=== PATIENT | female | born 1985 | race American Indian/Alaskan Native ===

== ENCOUNTER 2018-01-12 01:11 | Inpatient (IN) | payer OTHER ==
[2018-01-12 01:35] VITALS: BMI 27.4
[2018-01-12] MEDS ORDERED: Sodium Chloride 0.9% 1,000 ML IV STA ×2 (01:35→05:38)
--- NOTE | 2018-01-12 01:37 | ED PDOC ---
Arrival/HPI - General Time Seen by Provider: 01/12/18 01:13 Historian: Patient - History of Present Illness Narrative History of Present Illness (Text): 01/12/18 01:34 32 year old female, whose past medical history includes shellfish, who presents to the emergency department complaining of sharp abdominal pain tonight. Patient notes associated nausea. Patient states she ate past for dinner but was unaware there was shrimp in the dish. Patient denies any fevers, chills, vomiting, diarrhea, chest pain, SOB, back pain, neck pain, or any other complaints. Time/Duration: 4-6 hours Symptom Onset: Gradual Symptom Course: Unchanged Activities at Onset: Light Context: Home Past Medical History - Provider Review Nursing Documentation Reviewed: Yes Family/Social History - Physician Review Nursing Documentation Reviewed: Yes Family/Social History: Unknown Family HX Allergies/Home Meds Allergies/Adverse Reactions: Allergies shellfish derived Allergy (Verified 01/12/18 01:34) ANAPHYLAXIS Home Medications: Home Meds Medication Instructions Recorded Confirmed No Known Home Med 01/12/18 01/12/18 Review of Systems - Physician Review All systems were reviewed & negative as marked: Yes - Review of Systems Constitutional: Normal Eyes: Normal ENT: Normal Respiratory: Normal. absent: SOB, Cough Cardiovascular: Normal. absent: Chest Pain Gastrointestinal: Abdominal Pain, Nausea. absent: Diarrhea, Vomiting Genitourinary Female: Normal. absent: Dysuria, Frequency Musculoskeletal: Normal. absent: Back Pain, Neck Pain Skin: Normal. absent: Rash Neurological: Normal. absent: Headache, Dizziness Endocrine: Normal Hemo/Lymphatic: Normal Psychiatric: Normal Physical Exam Vital Signs Temp Pulse Resp BP Pulse Ox 01/12/18 01:34 98.5 F 70 18 138/50 L 100 - Systems Exam Head: Present: Atraumatic, Normocephalic Pupils: Present: PERRL Extroacular Muscles: Present: EOMI Conjunctiva: Present: Normal Mouth: Present: Moist Mucous Membranes Neck: Present: Normal Range of Motion Respiratory/Chest: Present: Clear to Auscultation, Good Air Exchange. No: Respiratory Distress, Accessory Muscle Use Cardiovascular: Present: Regular Rate and Rhythm, Normal S1, S2. No: Murmurs Abdomen: Present: Tenderness (epigastric/right upper abdomen), Normal Bowel Sounds. No: Distention, Peritoneal Signs, Rebound, Guarding, McBurney's Point Tender Back: Present: Normal Inspection Upper Extremity: Present: Normal Inspection. No: Cyanosis, Edema Lower Extremity: Present: Normal Inspection. No: Edema Neurological: Present: GCS=15, CN II-XII Intact, Speech Normal, Motor Func Grossly Intact, Normal Sensory Function Skin: Present: Warm, Dry, Normal Color. No: Rashes Psychiatric: Present: Alert, Oriented x 3, Normal Insight, Normal Concentration Medical Decision Making ED Course and Treatment: 01/12/18 01:38 Impression: 32 year old female presents to the emergency department complaining of sharp abdominal pain tonight. Plan: -- Labs -- Pepcid -- Toradol -- Zofran -- Sodium Chloride -- CT Abd/Pelvis -- UA Progress Notes: 01/12/18 05:31 CT Abdomen/Pelvis reviewed, shows: IMPRESSION: 1. Probable stones fill the gallbladder. Gallbladder is decompressed. If there is right upper quadrant pain, ultrasound evaluation may be helpful. 2. Mild fecal retention in the right and transverse colon consistent with constipation. 3. 4.3 x 2.9 cm right ovarian cyst or follicle. 01/12/18 05:[address] Leon, who is aware and agrees with plan. Accepts pt to his service. Requests Dr. Gregorio on consult. residential sales to evaluate pt. - Lab Interpretations Lab Results: 01/12/18 01:58 01/12/18 01:58 Lab Results 01/12/18 03:49: Urine Color Straw, Urine Appearance Clear, Urine pH 6.5, Ur Specific [place] <= 1.005, Urine Protein Negative, Urine Glucose (UA) Negative, Urine Ketones Negative, Urine Blood Negative, Urine Nitrate Negative, Urine Bilirubin Negative, Urine Urobilinogen 0.2, Ur Leukocyte Esterase Negative 01/12/18 01:58: WBC 14.1 H, RBC 4.17, Hgb 11.7 L, Hct 34.2 L, MCV 82.0, MCH 28.1 , MCHC 34.2, RDW 13.8, Plt Count 271, MPV 9.0 01/12/18 01:58: Sodium 143, Potassium 3.5 L, Chloride 103, Carbon Dioxide 28, Anion Gap 16, BUN 12, Creatinine 0.8, Est GFR ( Amer) > 60, Est GFR (Non- Af Amer) > 60, Random Glucose 93, Calcium 9.2, Total Bilirubin 0.6, AST 146 H, ALT 66 H, Alkaline Phosphatase 90, Total Protein 8.1, Albumin 4.3, Globulin 3.8 , Albumin/Globulin Ratio 1.1, Lipase 542 H - RAD Interpretation Radiology Orders: 01/12/18 03:03 ABD & PELVIS W/O PO OR IV CONT [CT] Stat 01/12/18 05:40 GALLBLADDER & PANCREAS [US] Stat - Medication Orders Current Medication Orders: Sodium Chloride (Sodium Chloride 0.9%) 1,000 mls @ 100 mls/hr IV .Q10H STA Stop: 01/12/18 15:37 Discontinued Medications Famotidine (Pepcid) 20 mg IVP STAT STA Stop: 01/12/18 01:36 Last Admin: 01/12/18 03:03 Dose: 20 mg IVP Administration Document 01/12/18 03:03 SS (Rec: 01/12/18 03:03 [id number] Charges for Administration # of IVP Administrations 1 Sodium Chloride (Sodium Chloride 0.9%) 1,000 mls @ 999 mls/hr IV .Q1H1M STA Stop: 01/12/18 02:35 Last Admin: 01/12/18 02:34 Dose: 999 mls/hr eMAR Start Stop Document 01/12/18 02:34 SS (Rec: 01/12/18 02:34 SS [id number]) Intravenous Solution Start Date 01/12/18 Start Time 02:34 Ketorolac Tromethamine (Toradol) 30 mg IVP ONCE ONE Stop: 01/12/18 01:36 Last Admin: 01/12/18 03:02 Dose: 30 mg MAR Pain Assessment Document 01/12/18 03:02 SS (Rec: 01/12/18 03:02 SS [id number]) Pain Reassessment Is this a pain reassessment? Yes IVP Administration Document 01/12/18 03:02 SS (Rec: 01/12/18 03:02 [id number] Charges for Administration # of IVP Administrations 1 Ondansetron HCl (Zofran Inj) 4 mg IVP ONCE ONE Stop: 01/12/18 01:36 Last Admin: 01/12/18 03:02 Dose: 4 mg IVP Administration Document 01/12/18 03:02 SS (Rec: 01/12/18 03:02 [id number]) Charges for Administration # of IVP Administrations 1 - Scribe Statement The provider has reviewed the documentation as recorded by the Angelaibsen Donnelly All medical record entries made by the Angelaibsen were at my direction and personally dictated by me. I have reviewed the chart and agree that the record accurately reflects my personal performance of the history, physical exam, medical decision making, and the department course for this patient. I have also personally directed, reviewed, and agree with the discharge instructions and disposition. Disposition/Present on Arrival - Present on Arrival Any Indicators Present on Arrival: No History of DVT/PE: No History of Uncontrolled Diabetes: No Urinary Catheter: No History of Decub. Ulcer: No History Surgical Site Infection Following: None - Disposition Have Diagnosis and Disposition been Completed?: Yes Diagnosis: Abdominal pain, Cholecystitis Disposition: HOSPITALIZED Disposition Time: 05:43 Condition: STABLE
[2018-01-12 02:17] LABS: HEMOGLOBIN 11.7 g/dL (12.0-16.0); MEAN CORPUSCULAR HEMOGLOBIN 28.1 pg (25.0-35.0); MEAN CORPUSCULAR HGB CONC 34.2 g/dl (31.0-37.0); RBC 4.17 10^6/uL (3.5-6.1); RED CELL DISTRIBUTION WIDTH 13.8 % (11.5-14.5); WHITE BLOOD COUNT 14.1 10^3/ul (4.5-11.0)
[2018-01-12 02:25] LABS: ALB/GLOB RATIO 1.1 (1.1-1.8); ALBUMIN 4.3 g/dL (3.0-4.8); ALT/SGPT 66 U/L (7-56); AST/SGOT 146 U/L (14-36); BLOOD UREA NITROGEN 12 mg/dL (7-21); CALCIUM 9.2 mg/dL (8.4-10.5); GFR AFRICAN-AMERICAN > 60; GFR NON-AFRICAN AMERICAN > 60; LIPASE 542 U/L (23-300)
[2018-01-12 04:04] LABS: PH,URINE 6.5 (4.7-8.0); URINE BILIRUBIN NEGATIVE (NEGATIVE); URINE BLOOD NEGATIVE (NEGATIVE); URINE GLUCOSE (UA) NEGATIVE (NEGATIVE); URINE LEUKOCYTE ESTERASE NEGATIVE Leu/uL (NEGATIVE); URINE PROTEIN NEGATIVE mg/dL (<30 mg/dL); URINE UROBILINOGEN 0.2 E.U./dL (<1 E.U./dL)
[2018-01-12 04:07] LABS: URINE APPEARANCE CLEAR (CLEAR); URINE COLOR STRAW (YELLOW)
[2018-01-12] MEDS ORDERED: Potassium Chloride 20 mEq ER Tab PO STA (05:46)
--- NOTE | 2018-01-12 06:19 | CP.PCM.HP ---
<Daljit Whatley - Last Filed: 01/12/18 07:02> History of Present Illness - History of Present Illness History of Present Illness: Daljit Whatley, PGY-[address] History and Physical for Dr. Leon CC: Abdominal Pain HPI: Ms. Sam is a 32 year old Female with no PMHx aside from recent wisdom teeth extraction for which she is on Amoxicillin who presents with abdominal pain that awoke the patient from sleep at 12:30 am. Patient reports a pain in the epigastric region and a scale of 10/10 at that time, and a lack of appetite. Patient also reports subjective chills and diaphoresis and nausea. Patient denies CP, palpitations, shortness of breath, vomiting, headache, dizziness, dysuria, changes in bowel habits. In ED, patient received Zofran, pepcid, pain medication and now patient reports pain as 0/10. PMHx: none per patient PSHx: wisdom tooth extraction All: Shellfish Social: denies IVDU, ETOH and tobacco Fam Hx: Dad has HTN Meds: multivitamin, currently on antibiotic course for wisdom teeth Present on Admission - Present on Admission Any Indicators Present on Admission: No Review of Systems - Review of Systems All systems: reviewed and no additional remarkable complaints except Review of Systems: 12 point ROS completed and negative except as described in HPI. Past Patient History - Past Social History Smoking Status: Never Smoked - CARDIAC Hx Cardiac Disorders: No - PULMONARY Hx Respiratory Disorders: No - NEUROLOGICAL Hx Neurological Disorder: No - HEENT Hx HEENT Problems: No - RENAL Hx Chronic Kidney Disease: No - ENDOCRINE/METABOLIC Hx Endocrine Disorders: No - HEMATOLOGICAL/ONCOLOGICAL Hx Blood Disorders: No - INTEGUMENTARY Hx Dermatological Problems: No - MUSCULOSKELETAL/RHEUMATOLOGICAL Hx Musculoskeletal Disorders: No - GASTROINTESTINAL Hx Gastrointestinal Disorders: No - GENITOURINARY/GYNECOLOGICAL Hx Genitourinary Disorders: No - PSYCHIATRIC Hx Psychophysiologic Disorder: No Hx Substance Use: No - SURGICAL HISTORY Hx Surgeries: No - ANESTHESIA Hx Anesthesia: No Meds Allergies/Adverse Reactions: Allergies Allergy/AdvReac Type Severity Reaction Status Date / Time shellfish derived Allergy ANAPHYLAXIS Verified 01/12/18 01:34 Physical Exam - Constitutional Appears: Well, Non-toxic, No Acute Distress - Head Exam Head Exam: ATRAUMATIC, NORMAL INSPECTION, NORMOCEPHALIC - Eye Exam Eye Exam: EOMI, Normal appearance Pupil Exam: PERRL - ENT Exam ENT Exam: Mucous Membranes Moist - Neck Exam Neck exam: Positive for: Normal Inspection. Negative for: Lymphadenopathy - Respiratory Exam Respiratory Exam: Clear to Auscultation Bilateral, NORMAL BREATHING PATTERN. absent: Rales, Rhonchi, Wheezes - Cardiovascular Exam Cardiovascular Exam: RRR, +S1, +S2 - GI/Abdominal Exam GI & Abdominal Exam: Normal Bowel Sounds, Soft. absent: Bruit, Distended, Guarding, Hypoactive Bowel Sounds, Mass, Organomegaly, Pulsatile Mass, Rebound, Rigid, Tenderness Additional comments: Negative Mejia and Rovsing sign. - Extremities Exam Extremities exam: Positive for: full ROM, normal inspection. Negative for: calf tenderness, joint swelling, pedal edema, tenderness - Back Exam Back exam: absent: CVA tenderness (L), CVA tenderness (R) - Neurological Exam Neurological exam: Alert, Normal Gait, Oriented x3 - Psychiatric Exam Psychiatric exam: Normal Affect, Normal Mood - Skin Skin Exam: Dry, Intact, Normal Color, Warm Results - Vital Signs Recent Vital Signs: Last Vital Signs Temp 98.5 F 01/12/18 01:34 Pulse 70 01/12/18 01:34 Resp 18 01/12/18 01:34 BP 138/50 L 01/12/18 01:34 Pulse Ox 100 01/12/18 01:34 - Labs Result Diagrams: 01/12/18 01:58 01/12/18 01:58 Assessment & Plan - Assessment and Plan (Free Text) Assessment: Ms. Sam is a 32 year old Female with no PMHx aside from recent wisdom teeth extraction for which she is on Amoxicillin who presents with abdominal pain that awoke the patient from sleep at 12:30 am. Plan: Cholelithiasis In ED, patient received Pepcid, Toradol, Zofran, CT abd report: probable stones fill gallbladder. Gallbladder decompressed. U/S may be helpful. Constipation. 4.3x2.9 R ovarian cyst or follicle WBC 14.1 , Hgb 11.7, Hct 34.2, hemodynamically stable AST/ALT 146/66 Abx Zosyn Lipase 542 UA negative B-hcg ordered to r/o NPO, LR @ 100cc/hr Zofran 4 mg q4 PRN f/u UDS f/u AM labs, including Mg and Phos f/u coag studies f/u blood culture f/u surgery (Dr. Gregorio) consult f/u GI (Dr. James) consult f/u ID (Dr. Rodriguez) consult f/u RUQ U/S and HIDA scan for ? biliary obstruction f/u transvaginal U/S Hypokalemia k 3.5 repleted f/u AM lab Recent [place] teeth removal currently on course of Amoxicillin patient did not know day of therapy, so f/u day with pharmacy GI/DVT ppx: Protonix 40 IVP q12 Heparin 5000 q8 Case reviewed and plan discussed with Dr. Leon. Daljit Whatley, PGY-1 <Eddie Leon U - Last Filed: 01/14/18 17:27> Results - Vital Signs Recent Vital Signs: Last Vital Signs Temp 97.6 F 01/14/18 08:34 Pulse 54 L 01/14/18 08:34 Resp 18 01/14/18 08:34 BP 125/79 01/14/18 08:34 Pulse Ox 100 01/14/18 08:34 - Labs Result Diagrams: 01/14/18 05:30 01/14/18 05:30 Labs: Laboratory Results - last 24 hr 01/14/18 01/14/18 05:30 05:30 WBC 8.8 D RBC 3.85 Hgb 10.4 L Hct 31.7 L MCV 82.3 MCH 27.0 MCHC 32.8 RDW 13.8 Plt Count 234 MPV 8.9 Gran % 54.6 Lymph % (Auto) 34.3 [place] % (Auto) 8.2 H Eos % (Auto) 2.7 Baso % (Auto) 0.2 Gran # 4.77 Lymph # (Auto) 3.0 [place] # (Auto) 0.7 H Eos # (Auto) 0.2 Baso # (Auto) 0.02 Sodium 141 Potassium 3.7 Chloride 107 Carbon Dioxide 26 Anion Gap 12 BUN 7 Creatinine 0.9 Est GFR ( Amer) > 60 Est GFR (Non-Af Amer) > 60 Random Glucose 100 Calcium 8.4 Phosphorus 3.3 Magnesium 1.7 Total Bilirubin 0.3 Direct Bilirubin 0.0 AST 93 H D ALT 222 H Alkaline Phosphatase 87 Total Protein 6.6 Albumin 3.3 Globulin 3.3 Albumin/Globulin Ratio 1.0 L Amylase 99 Lipase 267 Attending/Attestation - Attestation I have personally seen and examined this patient.: Yes I have fully participated in the care of the patient.: Yes I have reviewed all pertinent clinical information: Yes Notes (Text): Please see/read my dictated notes.
[2018-01-12] MEDS ORDERED: Lactated Ringer's 1,000 ML IV SCH (06:45)
[2018-01-12 07:12] LABS: INR 1.04; PARTIAL THROMBOPLASTIN TIME 27.4 Seconds (25.1-36.5)
[2018-01-12 07:21] LABS: BARBITURATES, UR NEGATIVE (NEGATIVE); BENZODIAZEPINES, UR NEGATIVE (NEGATIVE); OPIATES, UR NEGATIVE (NEGATIVE); PHENCYCLIDINE, UR NEGATIVE (NEGATIVE)
--- NOTE | 2018-01-12 07:48 | CP.PCM.CON ---
History of Present Illness - History of Present Illness History of Present Illness: General Surgery consult note for Dr. Gregorio. Pt is a 32 yo female with no significant PMH/PSH who presents to the ED complaining of worsening sharp epigastric 10/10 abdominal pain which woke her from sleep at about 12:30am on 01-12-18. Nothing makes the pain better or worse, the pain does not radiate. Pt reports that her abdominal pain has resolved at this time. Pt admits sweating and nausea during the episode, denies fevers, chills, vomiting, diarrhea. A 12 point ROS was obtained and negative unless otherwise stated. Surgery consulted to evaluate for abdominal pain. PMH: denies PSH: denies FH: Mother- from cervical cancer 50's, DM. Father- HTN, gallstones SH: never smoker, occasional alcohol, denies drugs Home Meds: denies Allergies: shrimp, "Throat closes" Review of Systems - Review of Systems Review of Systems: 12 point ROS obtained and added to HPI where appropriate. Past Patient History - Past Social History Smoking Status: Never Smoked - CARDIAC Hx Cardiac Disorders: No - PULMONARY Hx Respiratory Disorders: No - NEUROLOGICAL Hx Neurological Disorder: No - HEENT Hx HEENT Problems: No - RENAL Hx Chronic Kidney Disease: No - ENDOCRINE/METABOLIC Hx Endocrine Disorders: No - HEMATOLOGICAL/ONCOLOGICAL Hx Blood Disorders: No - INTEGUMENTARY Hx Dermatological Problems: No - MUSCULOSKELETAL/RHEUMATOLOGICAL Hx Musculoskeletal Disorders: No - GASTROINTESTINAL Hx Gastrointestinal Disorders: No - GENITOURINARY/GYNECOLOGICAL Hx Genitourinary Disorders: No - PSYCHIATRIC Hx Psychophysiologic Disorder: No Hx Substance Use: No - SURGICAL HISTORY Hx Surgeries: No - ANESTHESIA Hx Anesthesia: No Meds Allergies/Adverse Reactions: Allergies Allergy/AdvReac Type Severity Reaction Status Date / Time shellfish derived Allergy ANAPHYLAXIS Verified 01/12/18 01:34 - Medications Medications: Current Medications Acetaminophen (Tylenol 325mg Tab) 650 mg PO Q6 PRN PRN Reason: TEMP>=99.5F Acetaminophen (Tylenol 650 Mg Supp) 650 mg RC Q6H PRN PRN Reason: TEMP>=99.5F Acetaminophen (Tylenol 325mg Tab) 650 mg PO Q6 PRN PRN Reason: Headache Acetaminophen (Tylenol 650 Mg Supp) 650 mg RC Q6H PRN PRN Reason: Headache Docusate Sodium (Colace) 100 mg PO TID [facility] Heparin Sodium (Porcine) (Heparin) 5,000 units SC Q8 [facility] PRN Reason: Protocol Piperacillin Sod/Tazobactam Sod (Zosyn 3.375 In Ns 100ml) 100 mls @ 200 mls/hr IVPB Q6 JORGE PRN Reason: Protocol Stop: 01/12/18 18:29 Lactated Ringer's (Lactated Ringer's) 1,000 mls @ 100 mls/hr IV .Q10H [facility] Potassium Chloride (Potassium Chloride 20 Meq/100 Ml) 20 meq in 100 mls @ 50 mls/hr IVPB Q2H [facility] Stop: 01/12/18 10:44 Ondansetron HCl (Zofran Inj) 4 mg IVP Q4H PRN PRN Reason: Nausea/Vomiting Pantoprazole Sodium (Protonix Inj) 40 mg IVP Q12 [facility] Polyethylene Glycol (Miralax) 17 gm PO BID [facility] Physical Exam - Constitutional Appears: No Acute Distress - Head Exam Head Exam: ATRAUMATIC, NORMAL INSPECTION, NORMOCEPHALIC - Eye Exam Eye Exam: EOMI, Normal appearance. absent: Conjunctival injection - ENT Exam ENT Exam: Mucous Membranes Moist - Neck Exam Neck exam: Positive for: Full Rom - Respiratory Exam Respiratory Exam: Clear to Auscultation Bilateral, NORMAL BREATHING PATTERN. absent: Accessory Muscle Use, Chest Wall Tenderness, Wheezes, Respiratory Distress, Stridor - Cardiovascular Exam Cardiovascular Exam: REGULAR RHYTHM, RRR, +S1, +S2. absent: Bradycardia, Tachycardia, Diastolic murmur, Irregular Rhythm, JVD, Systolic Murmur - GI/Abdominal Exam GI & Abdominal Exam: Normal Bowel Sounds, Soft. absent: Distended, Firm, Guarding, Rebound, Rigid, Tenderness - Extremities Exam Extremities exam: Positive for: full ROM, normal inspection, pedal pulses present. Negative for: calf tenderness, pedal edema, tenderness - Back Exam Back exam: FULL ROM, NORMAL INSPECTION. absent: CVA tenderness (L), CVA tenderness (R), muscle spasm, tenderness - Neurological Exam Neurological exam: Alert, Oriented x3 - Psychiatric Exam Psychiatric exam: Normal Affect, Normal Mood - Skin Skin Exam: Dry, Normal Color, Warm Results - Vital Signs Recent Vital Signs: Last Vital Signs Temp 98.5 F 01/12/18 01:34 Pulse 84 01/12/18 06:15 Resp 20 01/12/18 06:15 BP 124/70 01/12/18 06:15 Pulse Ox 99 01/12/18 07:18 - Labs Result Diagrams: 01/12/18 01:58 01/12/18 01:58 Labs: Laboratory Results - last 24 hr 01/12/18 01/12/18 01/12/18 06:24 06:51 06:51 PT 12.0 INR 1.04 APTT 27.4 Beta HCG, Quant < 2.39 Urine Opiates Screen Negative Urine Methadone Screen Negative Ur Barbiturates Screen Negative Ur Phencyclidine Scrn Negative Ur Amphetamines Screen Negative U Benzodiazepines Scrn Negative U Oth Cocaine Metabols Negative U Cannabinoids Screen Negative Assessment & Plan - Assessment and Plan (Free Text) Assessment: 32 yo female with abdominal pain. Plan: -RUQ US shows multiple small echogenic shadowing gallstones in gallbladder, w/o significant wall thickening or pericholecystic fluid, CBD 5mm. -f/u CT abdomen/ pelvis -F/u HIDA scan -continue to monitor WBC 14.1, LFT, ALT/AST elevated, Lipase 542 -continue IV antibiotics, per ID recs -GI consulted -discussed with Dr. Jg Cabrera PGY-1
--- NOTE | 2018-01-12 07:54 | US ---
EXAM: US Abdomen Limited, Right Upper Quadrant CLINICAL HISTORY: 32 years old, female; Pain; Abdominal pain; Generalized TECHNIQUE: Real-time ultrasound of the right upper quadrant with image documentation. COMPARISON: CT - ABD PELVIS W/O PO OR IV CONT 2018-01-12 04:03 FINDINGS: Liver: There is a diffuse increase in hepatic parenchymal echogenicity, consistent with fatty infiltration.There are no focal lesions present.There is normal hepatopedal flow noted in the portal vein. Gallbladder: There are multiple small echogenic shadowing gallstones in the gallbladder without significant wall thickening or pericholecystic fluid.No sonographic Mejia sign is seen. Common bile duct: There is no evidence of biliary ductal dilation.5 mm. No stones. Pancreas: The visualized pancreas is normal in appearance without evidence for discrete masses or pancreatitis.The pancreas tail is obscured by overlying bowel gas limiting evaluation. Right kidney: The right kidney is normal in size without evidence for calculus or hydronephrosis. Aorta: The abdominal aorta is normal in caliber without evidence for dissection or aneurysm. Inferior vena cava: The inferior vena cava is normal in caliber. IMPRESSION: There are multiple small echogenic shadowing gallstones in the gallbladder without significant wall thickening or pericholecystic fluid.No sonographic Mejia sign is seen.
--- NOTE | 2018-01-12 07:57 | US ---
EXAM: US Pelvis Complete, Transabdominal US Pelvis, Transvaginal CLINICAL HISTORY: 32 years old, female; Pain; Pelvic pain; Additional info: Ovarian cyst TECHNIQUE: Real-time transabdominal and transvaginal pelvic ultrasound (complete) with image documentation. Transvaginal imaging was used for better evaluation of the endometrium and adnexa. COMPARISON: CT - ABD PELVIS W/O PO OR IV CONT 2018-01-12 04:03 FINDINGS: Uterus/cervix: The uterus is anteverted, normal in size and echotexture. 8.1 x 3.4 x 5.4 cm. No discrete fibroid or focal mass is seen. The endometrium measures 1 cm in thickness. Right ovary: The right ovary is normal in size and echotexture. 5.6 x 3.7 x 5.7 cm. Normal arterial flow is seen in the right ovary without evidence for torsion. 5.0 x 4.3 x 2.7 cm anechoic simple follicular cyst is again noted in the right ovary. Left ovary: The left ovary is normal in size and echotexture. 3.2 x 1.8 x 3.6 cm. Normal arterial flow is seen in the left ovary without evidence for torsion.Few subcentimeter simple follicular cysts are seen. Free fluid: No free fluid. Bladder: Unremarkable as visualized. Wall is normal thickness for degree of distention. IMPRESSION: 5.0 x 4.3 x 2.7 cm anechoic simple follicular cyst is again noted in the right ovary. No discrete fibroid, solid adnexal masses or free fluid is seen.
--- NOTE | 2018-01-12 08:52 | CT ---
Date of service: 01/12/2018 PROCEDURE: CT Abdomen and Pelvis without intravenous contrast HISTORY: abdominal pain COMPARISON: None. TECHNIQUE: Without contrast.. Contrast dose: 0 Radiation dose: Total exam DLP = 448.64 mGy-cm. This CT exam was performed using one or more of the following dose reduction techniques: Automated exposure control, adjustment of the mA and/or kV according to patient size, and/or use of iterative reconstruction technique. FINDINGS: LOWER THORAX: Unremarkable. LIVER: Unremarkable. No gross lesion or ductal dilatation. GALLBLADDER AND BILE DUCTS: High attenuation material within the gallbladder lumen may reflect milk of calcium bile. Alternatively, this could represent vicarious excretion of intravenously administered contrast material from recent outside examination. No definite calculi appreciated. PANCREAS: Unremarkable. No gross lesion or ductal dilatation. SPLEEN: Unremarkable. ADRENALS: Unremarkable. No mass. KIDNEYS AND URETERS: Unremarkable. No hydronephrosis. No solid mass. VASCULATURE: Unremarkable. No aortic aneurysm. BOWEL: Unremarkable. No obstruction. No gross mural thickening. APPENDIX: Unremarkable. Normal appendix. PERITONEUM: Unremarkable. No free fluid. No free air. LYMPH NODES: Unremarkable. No enlarged lymph nodes. BLADDER: Unremarkable. REPRODUCTIVE: Right adnexal cyst, 2.4 x 3.8 cm. Correlate with transvaginal pelvic ultrasound. Unremarkable uterus. BONES: No acute fracture. OTHER FINDINGS: None. IMPRESSION: 3.8 cm right adnexal cyst. Correlate with transvaginal pelvic ultrasound examination. High attenuation material within gallbladder lumen common nonspecific. Possible milk of calcium bile or vicarious excretion of contrast material. No additional abnormality. The preliminary findings for this examination were reported by [employer] at 5:26 a.m. on 01/12/2018. There is concurrence of this report with the preliminary findings.
[2018-01-12] MEDS: POLYETHYLENE GLYCOL 3350 17 GM/Dose PACKET PO SCH ×2 (11:26→18:01)
--- NOTE | 2018-01-12 11:42 | CP.PCM.CON ---
<Tahmina Young - Last Filed: 01/12/18 13:31> History of Present Illness - History of Present Illness History of Present Illness: 32 yo female with no significant PMH presented to ED with abdominal pain that awoke the patient from sleep at 12:30 am. Patient states the pain was located in the epigastric region and a scale of 10/10 at that time. Patient also reports subjective chills and diaphoresis and nausea at the time. This morning patient states that the pain has resolved as well as jian nausea and vomiting. He denies preivous episode with similar pain. Patient states that she has pasta for dinner last night. She also reprots shellfish allergy without any known expose. She denies any sick contact. Patients states that last month she travelled to [place]. She also reports wisdom teeth extraction for which she is on Amoxicillin last week. Patient denies chest pain, palpitations, shortness of breath, vomiting, headache, dizziness, dysuria, changes in bowel habits. PMH: none per patient PSH: wisdom tooth extraction Allergy: Shellfish Social history: denies smoking, alcohol use, illicit drug use Family History: mother past away from [facility], father has HTN and possible gallstones Review of Systems - Review of Systems All systems: reviewed and no additional remarkable complaints except Past Patient History - Past Social History Smoking Status: Never Smoked - CARDIAC Hx Cardiac Disorders: No - PULMONARY Hx Respiratory Disorders: No - NEUROLOGICAL Hx Neurological Disorder: No - HEENT Hx HEENT Problems: No - RENAL Hx Chronic Kidney Disease: No - ENDOCRINE/METABOLIC Hx Endocrine Disorders: No - HEMATOLOGICAL/ONCOLOGICAL Hx Blood Disorders: No - INTEGUMENTARY Hx Dermatological Problems: No - MUSCULOSKELETAL/RHEUMATOLOGICAL Hx Musculoskeletal Disorders: No - GASTROINTESTINAL Hx Gastrointestinal Disorders: No - GENITOURINARY/GYNECOLOGICAL Hx Genitourinary Disorders: No - PSYCHIATRIC Hx Psychophysiologic Disorder: No Hx Substance Use: No - SURGICAL HISTORY Hx Surgeries: No - ANESTHESIA Hx Anesthesia: No Meds Allergies/Adverse Reactions: Allergies Allergy/AdvReac Type Severity Reaction Status Date / Time shellfish derived Allergy ANAPHYLAXIS Verified 01/12/18 01:34 - Medications Medications: Current Medications Acetaminophen (Tylenol 325mg Tab) 650 mg PO Q6 PRN PRN Reason: TEMP>=99.5F Acetaminophen (Tylenol 650 Mg Supp) 650 mg RC Q6H PRN PRN Reason: TEMP>=99.5F Acetaminophen (Tylenol 325mg Tab) 650 mg PO Q6 PRN PRN Reason: Headache Acetaminophen (Tylenol 650 Mg Supp) 650 mg RC Q6H PRN PRN Reason: Headache Docusate Sodium (Colace) 100 mg PO TID [facility] Heparin Sodium (Porcine) (Heparin) 5,000 units SC Q8 [facility] PRN Reason: Protocol Last Admin: 01/12/18 11:28 Dose: Not Given Piperacillin Sod/Tazobactam Sod (Zosyn 3.375 In Ns 100ml) 100 mls @ 200 mls/hr IVPB Q6 [facility] PRN Reason: Protocol Stop: 01/17/18 12:01 Lactated Ringer's (Lactated Ringer's) 1,000 mls @ 100 mls/hr IV .Q10H [facility] Ondansetron HCl (Zofran Inj) 4 mg IVP Q4H PRN PRN Reason: Nausea/Vomiting Pantoprazole Sodium (Protonix Inj) 40 mg IVP Q12 [facility] Last Admin: 01/12/18 11:26 Dose: 40 mg Polyethylene Glycol (Miralax) 17 gm PO BID [facility] Last Admin: 01/12/18 11:26 Dose: 17 gm Physical Exam - Constitutional Appears: No Acute Distress - Head Exam Head Exam: ATRAUMATIC, NORMAL INSPECTION, NORMOCEPHALIC - Eye Exam Eye Exam: Normal appearance - ENT Exam ENT Exam: Mucous Membranes Moist - Respiratory Exam Respiratory Exam: Clear to Auscultation Bilateral, NORMAL BREATHING PATTERN. absent: Decreased Breath Sounds, Rales, Rhonchi, Wheezes, Respiratory Distress - Cardiovascular Exam Cardiovascular Exam: REGULAR RHYTHM, +S1, +S2. absent: Bradycardia, Tachycardia , Diastolic murmur, Systolic Murmur - GI/Abdominal Exam GI & Abdominal Exam: Normal Bowel Sounds, Soft. absent: Diminished Bowel Sounds , Distended, Firm, Guarding, Tenderness - Extremities Exam Extremities exam: Positive for: normal inspection - Back Exam Back exam: NORMAL INSPECTION. absent: CVA tenderness (L), CVA tenderness (R) - Neurological Exam Neurological exam: Alert, Oriented x3 Results - Vital Signs Recent Vital Signs: Last Vital Signs Temp 98.2 F 01/12/18 08:11 Pulse 56 L 01/12/18 08:11 Resp 20 01/12/18 08:11 BP 113/73 01/12/18 08:11 Pulse Ox 99 01/12/18 07:18 - Labs Result Diagrams: 01/12/18 01:58 01/12/18 01:58 Labs: Laboratory Results - last 24 hr 01/12/18 01/12/18 01/12/18 06:24 06:51 06:51 PT 12.0 INR 1.04 APTT 27.4 Beta HCG, Quant < 2.39 Urine Opiates Screen Negative Urine Methadone Screen Negative Ur Barbiturates Screen Negative Ur Phencyclidine Scrn Negative Ur Amphetamines Screen Negative U Benzodiazepines Scrn Negative U Oth Cocaine Metabols Negative U Cannabinoids Screen Negative Assessment & Plan - Assessment and Plan (Free Text) Assessment: 32 yo female with no significant PMH presented to ED with abdominal pain. CT abd showed probable stones fill gallbladder, mild Constipation and right ovarian cyst or follicle. In ED patient was found to be afebrile with leukocytosis. US showed gall bladder stones with out gall bladder wall thickening. Need to rule out cholecystitis. Will continue zosyn, if HIDA scan is negative will discontinue antibiotics. case reviewed and discussed with attending, Dr. Johnson <Cameron Johnson - Last Filed: 01/12/18 17:21> Meds - Medications Medications: Current Medications Acetaminophen (Tylenol 325mg Tab) 650 mg PO Q6 PRN PRN Reason: TEMP>=99.5F Acetaminophen (Tylenol 650 Mg Supp) 650 mg RC Q6H PRN PRN Reason: TEMP>=99.5F Acetaminophen (Tylenol 325mg Tab) 650 mg PO Q6 PRN PRN Reason: Headache Acetaminophen (Tylenol 650 Mg Supp) 650 mg RC Q6H PRN PRN Reason: Headache Docusate Sodium (Colace) 100 mg PO TID [facility] Last Admin: 01/12/18 14:15 Dose: 100 mg Heparin Sodium (Porcine) (Heparin) 5,000 units SC Q8 [facility] PRN Reason: Protocol Last Admin: 01/12/18 13:46 Dose: Not Given Piperacillin Sod/Tazobactam Sod (Zosyn 3.375 In Ns 100ml) 100 mls @ 200 mls/hr IVPB Q6 [facility] PRN Reason: Protocol Stop: 01/17/18 12:01 Last Admin: 01/12/18 13:00 Dose: 200 mls/hr Lactated Ringer's (Lactated Ringer's) 1,000 mls @ 100 mls/hr IV .Q10H [facility] Dextrose/Sodium Chloride (Dextrose 5%/0.45% Ns 1000 Ml) 1,000 mls @ 110 mls/hr IV .Q9H6M [facility] Last Admin: 01/12/18 12:59 Dose: 110 mls/hr Ondansetron HCl (Zofran Inj) 4 mg IVP Q4H PRN PRN Reason: Nausea/Vomiting Pantoprazole Sodium (Protonix Inj) 40 mg IVP Q12 [facility] Last Admin: 01/12/18 11:26 Dose: 40 mg Polyethylene Glycol (Miralax) 17 gm PO BID [facility] Last Admin: 01/12/18 11:26 Dose: 17 gm Results - Vital Signs Recent Vital Signs: Last Vital Signs Temp 98.4 F 01/12/18 16:40 Pulse 47 L 01/12/18 16:40 Resp 19 01/12/18 16:40 BP 110/68 01/12/18 16:40 Pulse Ox 100 01/12/18 16:40 - Labs Result Diagrams: 01/12/18 01:58 01/12/18 01:58 Labs: Laboratory Results - last 24 hr 01/12/18 01/12/18 01/12/18 06:24 06:51 06:51 PT 12.0 INR 1.04 APTT 27.4 Beta HCG, Quant < 2.39 Urine Opiates Screen Negative Urine Methadone Screen Negative Ur Barbiturates Screen Negative Ur Phencyclidine Scrn Negative Ur Amphetamines Screen Negative U Benzodiazepines Scrn Negative U Oth Cocaine Metabols Negative U Cannabinoids Screen Negative Assessment & Plan - Assessment and Plan (Free Text) Assessment: Infectious Diseases Attending Physician Addendum Patient seen and examined, discussed with medical equipment technician. I have reviewed the pertinent clinical information for the patient, including history of present illness, medical, personal and social histories, lab results and imaging findings. I agree with the above findings, assessment and plan. In addition, we have started Zosyn for this patient with cholelithiasis R/O acute cholecystitis in this patient with mild acute pancreatitis. Follow up HIDA scan.
--- NOTE | 2018-01-12 12:16 | NM ---
Date of service: 01/12/2018 PROCEDURE: Nuclear Medicine Hepatobiliary Scan HISTORY: ? cystic duct obstruction COMPARISON: January 12, 2018. Abdominal ultrasound TECHNIQUE: 6.5 mCi of technetium 99m Mebrofenin was administered intravenously. Planar images of the abdomen were obtained at 5 min intervals to 60 mins. Delayed images were also obtained. FINDINGS: LIVER: Timely and homogenous uptake. COMMON BILE DUCT: identified at 15 mins. GALLBLADDER: identified at 30 mins. SMALL BOWEL: Identified at 30 mins. IMPRESSION: Normal Hepatobiliary Scan. The cystic duct is patent.
[2018-01-12] MEDS: Dextrose 5%/0.45% NS 1,000 ML IV SCH ×2 (12:59→21:35)
[2018-01-12] MEDS: Piperacillin/Tazobact 3.375 gm 100 ML IVPB SCH ×2 (13:00→18:01)
--- NOTE | 2018-01-12 14:33 | HP ---
Copied To: Eddie Leon MD Attending MD: Eddie Leon MD HISTORY OF PRESENT ILLNESS: The patient is a 32-year-old female presented with less than 12 hours complaining of upper abdominal, epigastric, right upper quadrant pain associated with nausea. Denies any vomiting, diarrhea. Denies hemoptysis, hematemesis, melena. The patient reported above symptoms to the triage according to the ER physician evaluation and according to the patient. The patient has complained of sharp upper abdominal pain tonight associated with nausea. The patient ate fast at dinner. The patient was unaware that there was shrimp in the meal. Symptoms were less than 12 hours. REVIEW OF SYSTEMS: Thirteen-system review was done, pertinent positive and negative dictated above. CODE STATUS: Full code. LIVING WILL ADVANCE DIRECTIVE: None. HEIGHT: 5 feet 3. WEIGHT: 155. BMI: 27. ALLERGIES: SHELLFISH DERIVATIVE. HOME MEDICATIONS: None. MEDICAL, SURGICAL PSYCHIATRIC HISTORY: Negative. SOCIAL HISTORY: Positive for occasional alcohol use. Denies smoking. Denies drug use. Denies communicable transmissible disease. FAMILY HISTORY: Father has history of gallstone. Mother has history of cervical cancer. OCCUPATIONAL HISTORY: The patient works for the [employer]. Past surgical history is only significant for wisdom tooth extraction. PHYSICAL EXAMINATION: VITAL SIGNS: T-max 98.5; heart rate 70, 84; blood pressure 138/50, 124/70, 113/73; respirations 18-20; O2 sat 99-100%. GENERAL: The patient is seen lying in bed in [facility], bed 2. The patient is alert, awake, oriented x3. The patient is lying in the bed comfortably. Does not appear to be in any distress. HEENT: Head examination normocephalic, atraumatic. HEENT examination shows pinkish pale conjunctivae. Dry oral mucosa. No neck rigidity. CHEST: Symmetrical. LUNGS: Shows no rales, crackles or wheezing. CARDIOVASCULAR: S1, S2, regular rhythm. No audible murmur, gallop or rub. No rales, crackles or wheezing. ABDOMEN: Soft. Positive bowel sound. Positive epigastric right upper quadrant tenderness. Mild periumbilical tenderness. No rebound. No guarding. No rigidity. No costovertebral angle tenderness. GENITALIA: Female. RECTAL: Deferred. EXTREMITY: Shows no pitting edema, no calf tenderness, no Homans' sign. NEUROLOGICAL: The patient is alert, awake, oriented x3. Cranial nerves II through XII grossly intact. Gait examination is independent. MUSCULOSKELETAL: Shows a body mass index of 27. VASCULAR: Palpable pulses. PSYCHIATRIC: Negative. DIAGNOSTICS: WBC 14.1, hemoglobin and hematocrit 14.7 and 34.2. PT/PTT 12 and 27.4. Abnormal chemistry, potassium 3.5, AST 146, ALT 66, lipase 542. Beta hCG negative. Urinalysis negative. Urine drug screen negative. The patient had a CT of the abdomen, gallbladder ultrasound, transvaginal ultrasound, CAT scan of the abdomen and pelvis. Gallbladder ultrasound and transvaginal ultrasound were reviewed, which were done in the emergency room. TREATMENT IN THE EMERGENCY ROOM: The patient was seen and evaluated in the emergency room by the ER physician. The patient was given IV fluid. The patient was given Pepcid. The patient was given Toradol. The patient was given Zofran 4 mg. The patient was admitted. IMPRESSION AND PLAN: 1. Most likely possible acute cholecystitis with symptomatic cholelithiasis. 2. Upper abdominal pain. 3. Questionable mild gastritis. 4. Questionable pancreatitis with elevated lipase. 5. Right adnexal cyst, 2.4 x 3.8 cm. 6. Questionable milk calcium bile versus vicarious gallbladder material excretion. 7. Anteverted uterus. 8. Right ovarian simple follicular cyst, 5 x 4.3 x 2.7 cm. 9. Left ovarian simple follicular cyst, subcentimeter. 10. Hepatic fatty infiltration and hepatic steatosis. 11. Multiple cholelithiasis and multiple gallstones. 12. Leukocytosis. 13. Mild normocytic anemia. 14. Hypokalemia. 15. Transaminitis. 16. Questionable gallstone pancreatitis. Plan at this time, the patient has been admitted to [facility]. The patient has been kept n.p.o. The patient's repeat serial labs ordered. Blood cultures ordered. Current consultation: Gastroenterology, Infectious Disease, Surgery. CURRENT MEDICATIONS: Colace 100 mg three times a day, heparin 5000 subcu every 8 for DVT prophylaxis, Ringer's lactate 100 mL an hour, MiraLax 17 g twice a day, potassium riders orders x2, Protonix 40 IV every 12. The patient is on Tylenol p.o. and suppository every 6 p.r.n., Zofran 4 IV every 4 p.r.n. The patient is on Zosyn 3.375 g IV every 6. HIDA scan ordered. Incentive spirometry. The patient is n.p.o. except meds. The patient has been ordered out of bed to chair, NANCY sampson, MELANIEs. The patient's initial CAT scan read by the [facility]. Initial CAT scan shows fecal retention in the right and the transverse colon consistent with constipation also. An ovarian cyst. At present, the patient is awaiting surgical, infectious disease and gastroenterology evaluation and recommendation. The patient has been updated about her condition, diagnoses, treatment plan, management plan at length and all questions concerned answered, which she acknowledged and understand. Dictated and electronically signed, not read. Eddie Leon MD
--- NOTE | 2018-01-12 16:00 | CON ---
Copied To: Yan James MD Attending MD: Yan James MD DATE: 01/12/2018 CONSULTATION IN GASTROENTEROLOGY REQUESTING PHYSICIAN: Eddie Leon MD. REASON FOR CONSULT: I have been asked to see this 32-year-old female, who was awakened early this morning with severe epigastric pain. This was associated with nausea and chills. There is no report of vomiting. Radiographic imaging with ultrasound and CAT scan reveals gallstones. There is no evidence of gallbladder wall thickening or pericholecystic fluid. Hepatobiliary scan was negative for cystic duct obstruction. The patient states that her abdominal pain has essentially resolved. She denies any previous attacks of similar pain. PAST MEDICAL HISTORY: Unremarkable. PAST SURGICAL HISTORY: Notable for wisdom tooth extraction. SOCIAL HISTORY: She denies cigarette smoking or alcohol use. FAMILY HISTORY: Notable for mother dying from cervical cancer. Father with hypertension. MEDICATIONS AT HOME: Antibiotic eye drops. PHYSICAL EXAMINATION: GENERAL: Well-developed female, lying in bed, in no acute distress. VITAL SIGNS: Reveal temperature of 98.2, blood pressure 113/73, heart rate of 56. HEENT: Reveals sclerae to be white. Conjunctivae pink. NECK: Supple. CHEST: Lungs are clear. HEART: Reveals a regular rate and rhythm. ABDOMEN: Soft, nontender. No mass. EXTREMITIES: Show no edema. LABORATORY DATA: Reveal white blood cell count 14.1, hemoglobin 11.7. Chemistries reveal AST 146, ALT 66, lipase of 542, total bilirubin 0.6. IMPRESSION: A 32-year-old female awakened in the middle of the night with severe epigastric pain associated with nausea, chills with radiographic imaging studies showing gallstones. The common bile duct is not dilated. There is no pancreatic inflammation. There is some increased echogenicity of the liver consistent with fatty liver. This may explain the elevated liver enzymes. Hepatobiliary scan is negative. Again, I believe that the patient's abdominal pain is secondary to biliary colic. I do not believe that the patient has acute pancreatitis. RECOMMENDATIONS: 1. Surgical evaluation for cholecystectomy. 2. Clear liquid diet. 3. Advance to a low-fat diet as tolerated. Yan James MD
[2018-01-12 16:41] VITALS: O2SAT 100
[2018-01-13] MEDS: Piperacillin/Tazobact 3.375 gm 100 ML IVPB SCH ×4 (00:57→18:44)
[2018-01-13 06:19] LABS: BASO # 0.02 K/mm3 (0.0-2.0); BASO % 0.3 % (0.0-3.0); EOS # 0.2 (0.0-0.7); EOS % 2.5 % (1.5-5.0); GRAN # 3.41 (1.4-6.5); GRAN % 53.8 % (50.0-68.0); HEMOGLOBIN 10.7 g/dL (12.0-16.0); LYMPH # 2.4 (1.2-3.4); LYMPH % 37.3 % (22.0-35.0); MEAN CELL VOLUME 82.9 fl (80.0-105.0); MEAN CORPUSCULAR HEMOGLOBIN 27.7 pg (25.0-35.0); MEAN CORPUSCULAR HGB CONC 33.4 g/dl (31.0-37.0); MEAN PLATELET VOLUME 8.8 fl (7.0-11.0); MONO # 0.4 (0.1-0.6); MONO % 6.1 % (1.0-6.0); RBC 3.86 10^6/uL (3.5-6.1); WHITE BLOOD COUNT 6.4 10^3/ul (4.5-11.0)
[2018-01-13 06:34] LABS: ALBUMIN 3.4 g/dL (3.0-4.8); ALT/SGPT 351 U/L (7-56); AMYLASE 93 U/L (35-125); AST/SGOT 239 U/L (14-36); BILIRUBIN,DIRECT 0.1 mg/dL (0.0-0.4); BLOOD UREA NITROGEN 6 mg/dL (7-21); CALCIUM 8.5 mg/dL (8.4-10.5); GFR AFRICAN-AMERICAN > 60; GFR NON-AFRICAN AMERICAN > 60; LIPASE 115 U/L (23-300)
--- NOTE | 2018-01-13 10:15 | PN ---
Copied To: Kobe Rodriguez MD Attending MD: Kobe Rodriguez MD DATE: 01/13/2018 SUBJECTIVE: The patient is seen in bed, in no acute distress, nontoxic. OBJECTIVE: VITAL SIGNS: On exam, temperature is 98, blood pressure is 110/60, respiratory rate 20. HEENT: Examination is unremarkable. NECK: Supple. LUNGS: Have decreased breath sounds. HEART: Normal S1, S2. ABDOMEN: Soft, nontender. DATA: Laboratory examination reveals a white count of 6.4, hemoglobin of 10. Chemistries are noted, the LFT elevations and a lipase of 542. Urinalysis is noted. Toxicology is negative. Microbiology reveals the blood cultures have no growth.. Review of order reveals the patient to be on piperacillin and tazobactam and Dr. James's consult is reviewed. HIDA scan is reviewed. Gallbladder ultrasound is reviewed. CAT scan of the abdomen and pelvis is reviewed. ASSESSMENT AND PLAN: This is a 32-year-old female who was admitted with what appears to be acute cholecystitis and the patient admitted with abdominal pain. No fevers, no tachycardia. No dyspnea. She did have leukocytosis, currently on Zosyn. Awaiting for further input from Surgery and Gastroenterology. Kobe Rodriguez MD
[2018-01-13] MEDS: POLYETHYLENE GLYCOL 3350 17 GM/Dose PACKET PO SCH ×2 (10:18→18:20)
--- NOTE | 2018-01-13 10:47 | CP.PCM.PN ---
Subjective - Date & Time of Evaluation Date of Evaluation: 01/13/18 Time of Evaluation: 09:15 - Subjective Subjective: General Surgery progress note for Dr Gregorio. Pt seen and examined at bedside. Pt states her abdominal pain has resolved & she has been tolerating her diet. Pt denies fevers, or chills. Objective - Vital Signs/Intake and Output Vital Signs (last 24 hours): Temp Pulse Resp BP Pulse Ox 98.1 F 51 L 20 120/72 100 01/13/18 06:00 01/13/18 06:00 01/13/18 06:00 01/13/18 06:00 01/13/18 06:00 - Medications Medications: Current Medications Acetaminophen (Tylenol 325mg Tab) 650 mg PO Q6 PRN PRN Reason: TEMP>=99.5F Acetaminophen (Tylenol 650 Mg Supp) 650 mg RC Q6H PRN PRN Reason: TEMP>=99.5F Acetaminophen (Tylenol 325mg Tab) 650 mg PO Q6 PRN PRN Reason: Headache Acetaminophen (Tylenol 650 Mg Supp) 650 mg RC Q6H PRN PRN Reason: Headache Docusate Sodium (Colace) 100 mg PO TID [facility] Last Admin: 01/13/18 10:16 Dose: Not Given Heparin Sodium (Porcine) (Heparin) 5,000 units SC Q8 [facility] PRN Reason: Protocol Last Admin: 01/13/18 05:30 Dose: Not Given Piperacillin Sod/Tazobactam Sod (Zosyn 3.375 In Ns 100ml) 100 mls @ 200 mls/hr IVPB Q6 [facility] PRN Reason: Protocol Stop: 01/17/18 12:01 Last Admin: 01/13/18 05:29 Dose: 200 mls/hr Dextrose/Sodium Chloride (Dextrose 5%/0.45% Ns 1000 Ml) 1,000 mls @ 110 mls/hr IV .Q9H6M [facility] Last Admin: 01/12/18 21:35 Dose: 110 mls/hr Ondansetron HCl (Zofran Inj) 4 mg IVP Q4H PRN PRN Reason: Nausea/Vomiting Pantoprazole Sodium (Protonix Inj) 40 mg IVP Q12 [facility] Last Admin: 01/13/18 10:18 Dose: 40 mg Polyethylene Glycol (Miralax) 17 gm PO BID [facility] Last Admin: 01/13/18 10:18 Dose: Not Given - Labs Labs: PT 12.0 SECONDS (9.4-12.5) 01/12/18 06:51 INR 1.04 01/12/18 06:51 APTT 27.4 Seconds (25.1-36.5) 01/12/18 06:51 - Constitutional Appears: No Acute Distress - Head Exam Head Exam: ATRAUMATIC, NORMOCEPHALIC - Eye Exam Eye Exam: EOMI - ENT Exam ENT Exam: Mucous Membranes Moist - Neck Exam Neck Exam: Full ROM - Respiratory Exam Respiratory Exam: Clear to Ausculation Bilateral, NORMAL BREATHING PATTERN. absent: Accessory Muscle Use, Rales, Wheezes, Respiratory Distress, Stridor - Cardiovascular Exam Cardiovascular Exam: RRR, +S1, +S2. absent: Tachycardia, Diastolic murmur, JVD , Murmur - GI/Abdominal Exam GI & Abdominal Exam: Soft, Normal Bowel Sounds. absent: Distended, Firm, Guarding, Rigid, Tenderness - Extremities Exam Extremities Exam: Full ROM, Normal Inspection. absent: Calf Tenderness, Pedal Edema, Tenderness - Back Exam Back Exam: Full ROM. absent: CVA tenderness (L), CVA tenderness (R) - Neurological Exam Neurological Exam: Alert, Awake, Oriented x3 - Psychiatric Exam Psychiatric exam: Normal Affect, Normal Mood - Skin Skin Exam: Dry, Normal Color, Warm Assessment and Plan - Assessment and Plan (Free Text) Assessment: 32 yo female with abdominal pain. Plan: - HIDA scan negative - f/u MRCP, ordered by GI - since this is pt's first episode of biliary colic, pt advised to follow up as out pt for elective cholecystectomy - no plan for surgical intervention at this time - discussed with Dr. Jg Cabrera PGY-1
--- NOTE | 2018-01-13 11:03 | PN ---
Copied To: Yan James MD Attending MD: Yan James MD DATE: 01/13/2018 SUBJECTIVE: The patient is feeling much better. She denies any abdominal pain. She denies nausea, vomiting. She is hungry and would like to eat. PHYSICAL EXAMINATION: VITAL SIGNS: Reveal temperature of 98.1, blood pressure 120/72, heart rate of 51. HEENT: Reveal sclerae to be white. Conjunctivae pink. NECK: Supple. CHEST: Lungs are clear. HEART: Reveals a regular rate and rhythm. ABDOMEN: Soft, nontender. EXTREMITIES: Show no edema. LABORATORY DATA: Reveals white blood cell count 6.4, hemoglobin 10.7. Chemistries reveal AST of 239, ALT 351, alkaline phosphatase of 102, total bilirubin of 0.9. IMPRESSION: 1. Biliary colic. 2. Elevated liver enzymes. RECOMMENDATIONS: 1. We will request an MRCP to rule out a common bile duct stone. 2. We will advance to a low-fat diet. 3. Check hepatitis serology. Yan James MD
[2018-01-13] MEDS: Dextrose 5%/0.45% NS 1,000 ML IV SCH (14:36)
[2018-01-13 17:00] LABS: HEPATITIS B SURFACE AG Negative (NEGATIVE)
[2018-01-13 17:06] LABS: HEPATITIS A IGM NEGATIVE (NEGATIVE); HEPATITIS B CORE AB NEGATIVE (NEGATIVE)
[2018-01-13 17:17] LABS: HEPATITIS C ANTIBODY NEGATIVE (NEGATIVE)
--- NOTE | 2018-01-13 22:52 | PN ---
Copied To: Eddie Leon MD Attending MD: Eddie Leon MD DATE: 01/13/2018 SUBJECTIVE: The patient was seen lying in the bed in room 371, bed 2. The patient feels comfortable. The patient's symptoms have improved since hospitalization. PHYSICAL EXAMINATION: GENERAL: The patient is seen lying in the bed. VITAL SIGNS: T-max 98.4, heart rate , 58, 56, blood pressure 120/68, respiration 20, O2 sat 100% HEENT: Head examination normocephalic, atraumatic. Shows pinkish pale conjunctivae. Dry oral mucosa. No neck rigidity. CHEST: Symmetrical. LUNGS: Shows no rales, crackles or wheezing. CARDIOVASCULAR: S1, S2, regular rhythm. ABDOMEN: Soft with decreased epigastric right upper quadrant tenderness. No periumbilical tenderness. No hepatosplenomegaly noted. No guarding. No rigidity. No rebound tenderness. GENITALIA: Female. RECTAL: Deferred. EXTREMITY: Shows no pitting edema, no calf tenderness, no Homans' sign. NEUROLOGIC: The patient is alert, awake, oriented x3. Cranial nerves II-XII intact. Motor strength is 5/5 in upper and lower extremity. Gait examination not tested as the patient is seen lying in the bed. MUSCULOSKELETAL: Shows a body mass index of 27.5. DIAGNOSTICS: On 01/13/2018, WBC 6.4, hemoglobin and hematocrit 10.7 and 32.0, platelet 222. Sodium 141, potassium 3.7, chloride 107, CO2 28, anion gap 10, BUN is 6, creatinine 0.9, GFR greater than 60, glucose 90, calcium 8.5, phosphorus 3.7, magnesium 1.8. AST has gone up to 239 from 146, ALT is gone up to 351. Lipase has gone down to 115. Urine drug screen, , Hepatitis A, B, C serologies are negative. Blood cultures are negative. The patient's HIDA scan, transvaginal ultrasound, gallbladder ultrasound all reviewed. IMPRESSION AND PLAN: 1. Acute biliary colic with cholelithiasis. 2. Questionable gallstone pancreatitis. 3. Questionable choledocholithiasis. 4. Transaminitis. 5. Asymptomatic bradycardia. 6. Status post leukocytosis. 7. Mild lymphocytosis. 8. Normocytic anemia. 9. Hypokalemia. 10. Anteverted uterus. 11. Right ovarian simple follicular cyst, 5 x 4.3 x 2.7 cm. 12. Subcentimeter simple follicular left ovarian cyst. 13. Cholelithiasis with negative hepatobiliary iminodiacetic acid scan. 14. Hepatic fatty infiltration. 15. Multiple echogenic gallstones. 16. Questionable milk of calcium bile with high attenuation material within the gallbladder versus vicarious gallbladder excretion. 17. Right adnexal cyst. 1. Most likely possible acute cholecystitis with symptomatic cholelithiasis. 2. Upper abdominal pain. 3. Questionable mild gastritis. 4. Questionable pancreatitis with elevated lipase. 5. Right adnexal cyst, 2.4 x 3.8 cm. 6. Questionable milk calcium bile versus vicarious gallbladder material excretion. 7. Anteverted uterus. 8. Right ovarian simple follicular cyst, 5 x 4.3 x 2.7 cm. 9. Left ovarian simple follicular cyst, subcentimeter. 10. Hepatic fatty infiltration and hepatic steatosis. 11. Multiple cholelithiasis and multiple gallstones. 12. Leukocytosis. 13. Mild normocytic anemia. 14. Hypokalemia. 15. Transaminitis. 16. Questionable gallstone pancreatitis. Plan at this time, the patient was seen by Gastroenterology. The patient has been ordered repeat lab. The patient was seen by Surgery. The patient has been ordered an MRI. Current medications, Colace 100 mg three times a day, IV fluid D5 half normal at 110 mL an hour, heparin 5000 subcu every eight for DVT prophylaxis, MiraLax 17 g twice a day, Protonix 40 mg IV every 12 hours, Tylenol suppository p.o. every 6 hours p.r.n., Zofran 4 mg IV every 4 hours p.r.n., Zosyn 3.375 g IV every 6 hours. The patient's MRCP has been ordered which is pending. The patient has been ordered incentive spirometry, out of bed. EKG has been ordered today. The patient has been ordered NANCY stockings, SCDs. The patient updated about her condition, diagnosis, treatment plan, management plan. Further need for diagnostic therapeutic intervention discussed and explained to the patient at length and all questions concerned answered. The patient was advised and encouraged to be out of bed and ambulate. Dictated and electronically signed, not read. Eddie MD [facility] # [id number] PAULA
[2018-01-14] MEDS: Piperacillin/Tazobact 3.375 gm 100 ML IVPB SCH ×2 (00:31→06:01)
[2018-01-14] MEDS ORDERED: Pantoprazole 40 mg EC Tab PO SCH (06:00)
[2018-01-14 06:28] LABS: BASO # 0.02 K/mm3 (0.0-2.0); BASO % 0.2 % (0.0-3.0); EOS # 0.2 (0.0-0.7); EOS % 2.7 % (1.5-5.0); GRAN # 4.77 (1.4-6.5); GRAN % 54.6 % (50.0-68.0); HEMOGLOBIN 10.4 g/dL (12.0-16.0); LYMPH % 34.3 % (22.0-35.0); MEAN CELL VOLUME 82.3 fl (80.0-105.0); MEAN CORPUSCULAR HGB CONC 32.8 g/dl (31.0-37.0); MEAN PLATELET VOLUME 8.9 fl (7.0-11.0); MONO # 0.7 (0.1-0.6); MONO % 8.2 % (1.0-6.0); RBC 3.85 10^6/uL (3.5-6.1); RED CELL DISTRIBUTION WIDTH 13.8 % (11.5-14.5); WHITE BLOOD COUNT 8.8 10^3/ul (4.5-11.0)
[2018-01-14 07:15] LABS: ALBUMIN 3.3 g/dL (3.0-4.8); ALT/SGPT 222 U/L (7-56); AMYLASE 99 U/L (35-125); AST/SGOT 93 U/L (14-36); BLOOD UREA NITROGEN 7 mg/dL (7-21); CALCIUM 8.4 mg/dL (8.4-10.5); GFR AFRICAN-AMERICAN > 60; GFR NON-AFRICAN AMERICAN > 60; LIPASE 267 U/L (23-300)
[2018-01-14] MEDS ORDERED: Gadodiamide 287 MG/ML VIAL (15ML) IV ONE (08:06)
[2018-01-14 08:35] VITALS: BP 125/79; PULSE 54; RESP 18; TEMP 97.6
[2018-01-14] MEDS: POLYETHYLENE GLYCOL 3350 17 GM/Dose PACKET PO SCH (09:11)
--- NOTE | 2018-01-14 09:49 | MRI ---
Date of service: 01/14/2018 PROCEDURE: Magnetic Resonance Cholangiopancreatography HISTORY: Abdominal pain. Rule out CBD stone. COMPARISON: None available. TECHNIQUE: Multiplanar, multisequence MR images of the abdomen were obtained, including heavily T2 weighted MRCP images of the biliary system. Rotating maximum intensity projection images of the biliary system were generated. FINDINGS: MRCP: The common bile duct is of a normal caliber. No evidence of choledocholithiasis. No intrahepatic biliary ductal dilatation. LIVER: Normal size, contour and signal intensity. Tiny sub cm fluid signal mass in the anterior right hepatic lobe. Several other tiny nonspecific high T2 signal lesions. No biliary dilatation. No abnormal enhancement following gadolinium administration. GALLBLADDER: Cholelithiasis. No mural thickening. No pericholecystic fluid. SPLEEN: Unremarkable. PANCREAS: Unremarkable. ADRENALS: Unremarkable. KIDNEYS: Unremarkable. AORTA: No aneurysm. ASCITES: None. OTHER FINDINGS: None. IMPRESSION: Cholelithiasis without evidence of cholecystitis. No evidence of biliary obstruction or choledocholithiasis.
--- NOTE | 2018-01-14 10:07 | CARD ---
APPROVED REPORT Date of service: 01/14/2018 EKG Measurement Heart [id number] <Conclusion> Sinus bradycardia with 1st degree AV block Otherwise normal ECG
--- NOTE | 2018-01-14 12:10 | PN ---
Copied To: Yan James MD Attending MD: Yan James MD DATE: 01/14/2018 SUBJECTIVE: The patient is sitting in a chair, comfortable. She denies any further abdominal pain. She denies nausea, vomiting. She is tolerating solid foods. OBJECTIVE: VITAL SIGNS: Stable. HEENT: Reveal sclerae to be white. Conjunctivae pink. NECK: Supple. CHEST: Lungs are clear. HEART: Exam reveals regular rate and rhythm. ABDOMEN: Soft, nontender. No mass. EXTREMITIES: Show no edema. DATA: AST, ALT are trending downward. MRCP is negative for common bile duct stone. There is no ductal dilatation. IMPRESSION: Biliary colic with elevated liver enzymes, which are trending downward. I suspect the patient passed a small stone. RECOMMENDATIONS: The patient will need a cholecystectomy, this should be done sooner than later, she can have it performed electively as an outpatient. I have also instructed the patient to embark on a low-fat diet and to return to the hospital if she has recurrence of abdominal pain. Yan James MD
--- NOTE | 2018-01-14 13:34 | PN ---
Copied To: Kobe Rodriguez MD Attending MD: Kobe Rodriguez MD DATE: 01/14/2018 SUBJECTIVE: The patient is seen earlier today in room 371, bed 2. No fevers and no chills. No nausea. No vomiting. No chest pain. PHYSICAL EXAMINATION: VITAL SIGNS: On exam, temperature is 97, blood pressure is 125/70, respiratory rate of 18. HEENT: Examination of HEENT is unremarkable. NECK: Supple. LUNGS: Have decreased breath sounds. HEART: Normal S1, S2. ABDOMEN: Soft, nontender. No organomegaly. No rebound. LABORATORY DATA: Laboratory examination reveals the patient's white count is 8.8, hemoglobin of 10. Chemistries are noted. Lipase is normal. Urinalysis is noted. Microbiology is reviewed. The patient also had an MRCP, which is read by Dr. Luis Lafleur. The patient did have cholelithiasis without evidence of cholecystitis. ASSESSMENT AND PLAN: A 32-year-old female admitted with acute cholecystitis, admitted with abdominal pain and colicky pain, which is all resolved. The patient's possible cholecystectomy as outpatient. Right now, doing well. I believe, she has probably passed the stone. No further antibiotics necessary. The patient is for possible discharge today. Kobe Rodriguez MD
--- NOTE | 2018-01-14 14:09 | DS ---
Copied To: Eddie Leon MD Attending MD: Eddie Leon MD LOCATION: The patient was seen in room 371, bed 2. HISTORY OF PRESENT ILLNESS: The patient is out of bed to chair. The patient is tolerating diet. The patient denies any nausea. Denies vomiting. Denies abdominal pain. Denies chest pain. Denies hemoptysis, hematemesis or melena. REVIEW OF SYSTEMS: Thirteen-system review was done, pertinent positive and negative dictated above. PHYSICAL EXAMINATION: VITAL SIGNS: T-max 98.3, heart rate 58, 54, 51, blood pressure 125/79, 120/68, 120/72, respiration 18, O2 sat 100% on room air. HEENT: Head: Normocephalic, atraumatic. HEENT examination shows pinkish conjunctivae. Anicteric sclerae. No oropharyngeal lesion. NECK: No neck rigidity. CHEST: Symmetrical. LUNGS: Shows no rales, crackles or wheezing. CARDIOVASCULAR: S1 and S2, regular rhythm. ABDOMEN: Soft. No epigastric, no right upper quadrant, no periumbilical tenderness noted. No costovertebral angle tenderness noted. No hepatosplenomegaly noted. GENITALIA: Female. RECTAL: Deferred. EXTREMITIES: Shows no pitting edema, no calf tenderness, no Homans' sign. MUSCULOSKELETAL: Shows a body mass index of 28. NEUROLOGICAL: The patient is alert, awake, oriented x3. Cranial nerves II-XII intact. Gait examination is independent. VASCULAR: Palpable pulses. DIAGNOSTICS: On 01/14/2018: WBC 8.8, hemoglobin and hematocrit 10.4 and 32, platelets 234. WBC count has come down from 14.1 to 8.8. Sodium 141, potassium 3.7, chloride 107, CO2 26, anion gap 12, BUN 7, creatinine 0.9, GFR greater than 60, glucose 100, calcium 8.4, phosphorus 3.3, magnesium 1.7. AST is down to 93, ALT is down to 222. Rest of the LFTs are normal. Urinalysis is negative. Urine drug screen serologies are negative. Microbiology results are negative. MRCP results were reviewed. MRCP showed no evidence of choledocholithiasis. Gallbladder showed cholelithiasis without cholecystitis. EKG was reviewed, which shows sinus bradycardia with first degree AV block. FINAL IMPRESSION, PLAN AND DISCHARGE DIAGNOSES: 1. Acute biliary colic with cholelithiasis. 2. Questionable gallstone pancreatitis and gallstone hepatitis and transaminitis. 3. Asymptomatic bradycardia with first degree atrioventricular block. 4. Status post leukocytosis. 5. Mild lymphocytosis. 6. Hypokalemia. 7. Anteverted uterus. 8. Right ovarian simple follicular cyst, 5 x 4.3 x 2.7 cm. 9. Subcentimeter simple follicular left ovarian cyst. 10. Cholelithiasis with negative HIDA and hepatobiliary scan. 11. Hepatic fatty infiltration and hepatic steatosis. 12. Multiple echogenic gallstones. 13. Questionable milk of calcium bile with high attenuation material within the gallbladder versus vicarious gallbladder excretion. 14. Right adnexal cyst. 15. Mild normocytic anemia. 16. Hypokalemia. 17. Resolving transaminitis. 1. Acute biliary colic with cholelithiasis. 2. Questionable gallstone pancreatitis. 3. Questionable choledocholithiasis. 4. Transaminitis. 5. Asymptomatic bradycardia. 6. Status post leukocytosis. 7. Mild lymphocytosis. 8. Normocytic anemia. 9. Hypokalemia. 10. Anteverted uterus. 11. Right ovarian simple follicular cyst, 5 x 4.3 x 2.7 cm. 12. Subcentimeter simple follicular left ovarian cyst. 13. Cholelithiasis with negative hepatobiliary iminodiacetic acid scan. 14. Hepatic fatty infiltration. 15. Multiple echogenic gallstones. 16. Questionable milk of calcium bile with high attenuation material within the gallbladder versus vicarious gallbladder excretion. 17. Right adnexal cyst. 1. Most likely possible acute cholecystitis with symptomatic cholelithiasis. 2. Upper abdominal pain. 3. Questionable mild gastritis. 4. Questionable pancreatitis with elevated lipase. 5. Right adnexal cyst, 2.4 x 3.8 cm. 6. Questionable milk calcium bile versus vicarious gallbladder material excretion. 7. Anteverted uterus. 8. Right ovarian simple follicular cyst, 5 x 4.3 x 2.7 cm. 9. Left ovarian simple follicular cyst, subcentimeter. 10. Hepatic fatty infiltration and hepatic steatosis. 11. Multiple cholelithiasis and multiple gallstones. 12. Leukocytosis. 13. Mild normocytic anemia. 14. Hypokalemia. 15. Transaminitis. 16. Questionable gallstone pancreatitis. PLAN AT THIS TIME: The patient will be considered for discharge after cleared by Surgery and Gastroenterology. The patient will be followed up with Dr. Leon, Surgery and Gastroenterology within 1 week. As per ambulatory orders plus new script, which will be given to the patient upon discharge. Copy of the diet will be given to the patient upon discharge. DISCHARGE MEDICATIONS: 1. Ciprofloxacin 500 twice a day. 2. Dexilant 60 mg daily. 3. Linzess 145 mcg daily. 4. Flagyl 500 mg three times a day. During this hospitalization, the patient was extensively explained on a daily basis about her condition, diagnoses, treatment plan, management plan, recommendation by all physician and was explained and reinforced to the patient at length and all questions concerned answered to her satisfaction. At this time, Surgery does not recommend any surgery at present. The patient was recommended outpatient followup and if the patient became symptomatic, the patient will require cholecystectomy as per surgical recommendation. The patient was advised by Surgery to follow up outpatient for elective cholecystectomy, which the patient agreed to. The patient was seen by Gastroenterology. Time spent in the discharge process 45 minutes. Dictated and electronically signed, not read. Eddie Leon MD : 01/14/2018 11:08:12 MTDD
== END 2018-01-14 11:54 | disposition home or self-care (01) | DRG 446 ==
LOC: ED 01:11 → MERGE 05:37 → ERH 05:37 → 3RSO 07:30 → OBSVTOIN 01-13 09:43
PROVIDERS: ADMIT Internal Medicine; ATTEND Internal Medicine
DX: K80.00 Calculus of gallbladder with acute cholecystitis without obstruction (principal); I44.0 Atrioventricular block, first degree; E87.6 Hypokalemia; N85.4 Malposition of uterus; N83.01 Follicular cyst of right ovary; N83.02 Follicular cyst of left ovary; K59.00 Constipation, unspecified; K76.0 Fatty (change of) liver, not elsewhere classified; D64.9 Anemia, unspecified; D72.820 Lymphocytosis (symptomatic); R00.1 Bradycardia, unspecified; Z82.49 Family history of ischemic heart disease and other diseases of the circulatory system; Z83.3 Family history of diabetes mellitus; Z80.49 Family history of malignant neoplasm of other genital organs